=== PATIENT | male | born 1985 | race Caucasian/White ===

== ENCOUNTER 2022-10-07 12:23 | Emergency (ER) | payer OTHER, SELFPAY ==
[2022-10-07 13:38] VITALS: BP 0/0; PULSE 0; RESP 0; TEMP -17.7; TEMP 0
== END 2022-10-07 13:39 | disposition left against medical advice (07) ==
PROVIDERS: Emergency Provider Nurse Practitioner; PCP Family Medicine
DX: H92.01 Otalgia, right ear (principal); Z53.21 Procedure and treatment not carried out due to patient leaving prior to being seen by health care provider